=== PATIENT | male | born 1950 | race Caucasian/White ===

== ENCOUNTER 2020-09-06 12:41 | Inpatient (IN) | payer MEDICARE, OTHER ==
[~2020-09-06] VITALS: Ht 182.9 cm; Wt 59.6 kg
[2020-09-06 13:35] LABS: BASOPHILS ABSOLUTE AUTO 0.04 K/mm3 (0.00-0.23); BASOPHILS PERCENT AUTO 0 % (0-2); EOSINOPHILS ABSOLUTE AUTO 0.01 K/mm3 (0.00-0.68); EOSINOPHILS PERCENT AUTO 0 % (0-6); Hemoglobin 11.3 g/dL (13.5-17.5); IMMATURE GRAN ABSOLUTE AUTO 0.09 K/mm3 (0.00-0.10); IMMATURE GRAN PERCENT AUTO 1 % (0-1); LYMPHOCYTES ABSOLUTE AUTO 2.57 K/mm3 (0.84-5.20); LYMPHOCYTES PERCENT AUTO 13 % (21-46); MONOCYTES ABSOLUTE AUTO 1.88 K/mm3 (0.16-1.47); MONOCYTES PERCENT AUTO 10 % (4-13); Mean Corpuscular HGB 29.6 pg (26.0-34.0); Mean Corpuscular HGB Conc 31.4 g/dL (31.5-36.5); Mean Corpuscular Volume 94 fL (80-100); Mean Platelet Volume 10.6 fL (9.1-12.4); NEUTROPHILS ABSOLUTE AUTO 14.85 K/mm3 (1.96-9.15); NEUTROPHILS PERCENT AUTO 76 % (41-73); Platelet Count 330 K/mm3 (150-400); RDW Coefficient Variation 14.4 % (11.7-14.2); RDW Standard Deviation 49.9 fL (35.1-46.3); Red Blood Cell Count 3.82 M/mm3 (4.30-5.90); White Blood Cell Count 19.44 K/mm3 (4.00-11.30)
[2020-09-06 14:07] LABS: Alanine Aminotransfer (ALT/SGP 13 U/L (12-78); Albumin, Blood 3.7 g/dL (3.4-5.0); Albumin/Globulin Ratio 0.8 (0.8-1.8); Alk Phos 91 U/L (50-136); Anion Gap 9 mmol/L (6-16); Aspartate Aminotrans (AST/SGOT 14 U/L (12-37); Bilirubin, Total 0.6 mg/dL (0.1-1.0); Blood Urea Nitrogen 19 mg/dL (8-24); Bun/Creatinine Ratio 19.7 (12.0-20.0); CO2, Blood 22 mmol/L (21-32); Calcium, Blood 9.5 mg/dL (8.5-10.1); Chloride, Blood 108 mmol/L (98-108); Creatinine, Blood 0.97 mg/dL (0.60-1.20); Globulin, Blood 4.5 g/dL (2.2-4.0); Glomerular Filtration Rate >60 (60-); Glucose, Blood 130 mg/dL (70-99); Potassium, Blood 4.4 mmol/L (3.5-5.5); Sodium, Blood 139 mmol/L (136-145); Total Protein, Blood 8.2 g/dL (6.4-8.2)
--- NOTE | 2020-09-06 15:20 | NUR ---
History, Chart, Medications and Allergies reviewed before start of procedure.Lungs clear T/O to Auscultation. Pre-Op teaching done. Pt verbalizes understanding. Patient confirms NPO status and agrees with scheduled surgery.
--- NOTE | 2020-09-06 15:40 | NUR ---
09/06/20 4830 Erick Jean History, Chart, Medications and Allergies reviewed before start of procedure. MONITOR INTACT WITH CONTINUOUS PULSE OXIMETRY AND INTERMITTENT BP. 3-LEAD EKG REVIEWED WITH PHYSICIAN PRIOR TO START OF PROCEDURE. O2 VIA N/C INTACT THROUGHOUT SEDATION/PROCEDURE. Bite Block Placed. PATIENT DETERMINED TO BE ASA APPROPRIATE FOR PROPOFOL SEDATION PRIOR TO START OF PROCEDURE BY DR. RAE.
[2020-09-06 16:04] LABS: SARS-Cov-2 (COVID-19) PCR, MMC NEGATIVE (NEGATIVE)
[2020-09-06] MEDS ORDERED: PANT40 PO (17:05)
[2020-09-06 18:13] LABS: Hematocrit 28.6 % (37.0-53.0); Hemoglobin 9.3 g/dL (13.5-17.5)
--- NOTE | 2020-09-06 18:21 | NUR ---
PT ADMIT TO MEDICAL FLOOR AT 1700 VIA DAY SURGERY. ABLE TO STAND AND TRANSFER. ALERT AND ORIENTED X4. HARD TO UNDERSTAND AT TIMES. SON AT BEDSIDE AND ABLE TO HELP ANSWER ADMISSION QUESTIONS. OCTREOTIDE AND FLUIDS INFUSING. PT SLEEPING ON AND OFF. VITAL SIGNS STABLE. DENIES PAIN/NAUSEA AT THIS TIME. TELE SHOWING SINUS AND HR IN THE 90'S. LUNG SOUNDS VERY DIMINISHED THROUGHOUT. WHEN PALPATING ABDOMEN PT STATES IT IS SLIGHTLY TENDER WHEN PUSHING DOWN. USING URINAL. CALLING APPROPRIATLY. PENDING COBRA TRANSFER. WILL CONTINUE TO MONITOR AND REPORT OFF.
[2020-09-06 18:35] LABS: Hematocrit 29.2 % (37.0-53.0); Hemoglobin 9.4 g/dL (13.5-17.5)
[2020-09-06 18:46] LABS: International Normalized Ratio 1.05; Prothrombin Time Results 11.3 Sec (9.7-11.5)
--- NOTE | 2020-09-06 19:45 | NUR ---
TRANSFER: PT TRANSFERED TO [facility] VIA AMBULANCE. REPORT GIVEN TO NERIS AT 1932. NO ACUTE CHANGES AT THIS TIME. VITAL SIGN STABLE. OCTREOTIDE AND NS INFUSING. USING URINAL IN BED. BEDREST. NPO. ROOM AIR. TELE SHOWING SINUS. PT TAKEN WITH BELONGINGS. [place] AT BEDSIDE FOR TRANSFER.
== END 2020-09-06 19:20 | disposition short-term general hospital (02) | DRG 301 ==
LOC: ER 12:41 → MEDS 12:42 → ER 12:42 → MEDS 12:42 → PCU 15:40 → MEDS 15:40
PROVIDERS: Emergency Medicine; Internal Medicine Gastroenterology; ADMIT Internal Medicine
PROC: 0DJ08ZZ Inspection of Upper Intestinal Tract, Via Natural or Artificial Opening Endoscopic (ICD-10-PCS; principal; 2020-09-06 14:00)
DX: I86.4 Gastric varices (principal); K31.7 Polyp of stomach and duodenum; D72.829 Elevated white blood cell count, unspecified; Z20.822 Contact with and (suspected) exposure to COVID-19; D50.0 Iron deficiency anemia secondary to blood loss (chronic); F10.21 Alcohol dependence, in remission; M72.0 Palmar fascial fibromatosis [Dupuytren]; Z87.19 Personal history of other diseases of the digestive system; Z95.820 Peripheral vascular angioplasty status with implants and grafts; Z87.891 Personal history of nicotine dependence
CPT/HCPCS: 36415; 80053; 82272; 83690; 85014; 85018; 85025; 85610; 86850; 86900; 86901; 93005; 93010; 96365; 96367; 96375; 96376; 99285-25; C9113; G0480; J0696; J2250; J2354; J2405; J2704; J7030; J7050; J7120; U0004